=== PATIENT | female | born 1975 | race Caucasian/White ===

== ENCOUNTER 2016-09-04 01:49 | Emergency (ER) | payer OTHER ==
[~2016-09-04] VITALS: Ht 167.6 cm; Wt 63.5 kg
[~2016-09-04 01:49] MED LIST: CETI10CA PO; LEVO1TAB20 PO; SERT50TA PO
[2016-09-04] MEDS ORDERED: IV NS 0.9% 1,000 ML ONE (01:53)
[2016-09-04] MEDS ORDERED: IV SET PRIMARY 1 EA INFUS.SET MC ONE (01:53)
[2016-09-04] MEDS ORDERED: IV NS 0.9% 1,000 ML BAG IV ONE (02:00)
[2016-09-04 02:21] LABS: BASOPHILS % (AUTO) 0.7 % (0.0-2.0); DIFF TOTAL % 100 %; EOSINOPHILS % (AUTO) 0.6 % (0.0-6.0); HEMATOCRIT 33 % (33-45); HEMOGLOBIN 11.6 g/dL (11.5-14.8); LYMPHOCYTES # (AUTO) 1.5 /CMM (0.8-4.8); MEAN CORPUSCULAR HEMOGLOBIN 32 PG (26.0-33.0); MEAN CORPUSCULAR HGB CONC 35 g/dl (31.0-36.0); MEAN CORPUSCULAR VOLUME 92 fL (82-100); MONOCYTES # (AUTO) 0.3 /CMM (0.1-1.30); MONOCYTES % (AUTO) 8.3 % (2.0-12.0); NEUTROPHILS # (AUTO) 1.9 /CMM (1.8-8.9); NEUTROPHILS % (AUTO) 50.4 % (43.0-81.0); PLATELET COUNT (AUTO) 253 /CMM (150-450); RED BLOOD CELL COUNT(AUTO) 3.61 MIL/uL (4.0-5.2); WHITE BLOOD COUNT (AUTO) 3.7 K/uL (4.3-11.0)
[2016-09-04 02:38] LABS: ANION GAP 7 (5-14); CALCIUM, SERUM 7.6 mg/dL (8.5-10.1); CARBON DIOXIDE 30 mmol/L (21-32); CHLORIDE 104 mmol/L (98-107); GFR 61 mL/min (>60); GLUCOSE 82 mg/dL (74-106); POTASSIUM 3.4 mmol/L (3.5-5.1); SODIUM SERUM 138 mmol/L (136-145); UREA NITROGEN, BLOOD 13 mg/dL (7-18)
[2016-09-04 02:40] LABS: BILIRUBIN,DIRECT 0.1 mg/dL (0.0-0.2); BILIRUBIN,TOTAL 0.3 mg/dL (0.2-1.0)
[2016-09-04 02:41] LABS: ACETAMINOPHEN 8 ug/ml (10-30); ALANINE AMINOTRANSFERASE 19 U/L (12-78); ALBUMIN 3.1 g/dL (3.4-5.0); ASPARTATE AMINOTRANSFERASE 9 U/L (15-37); INDIRECT BILIRUBIN 0.2 mg/dL (0.0-1.1); SALICYLATE 0.3 mg/dL (2.8-20.0); TOTAL PROTEIN, SERUM 6.1 g/dL (6.4-8.2)
[2016-09-04 03:19] LABS: KETONES,URINE TRACE (NEGATIVE); LEUKOCYTE ESTERASE ,URINE NEGATIVE (NEGATIVE)
[2016-09-04 03:21] LABS: ADD UA MICROSCOPIC YES
[2016-09-04 03:23] LABS: PREGNANCY TEST URINE QUAL NEGATIVE (NEGATIVE)
[2016-09-04 03:25] LABS: ADD URINE CULTURE NO; WBC,URINE NONE SEEN /HPF (0-3)
[2016-09-04 03:26] LABS: CANNABINOID, URINE NEGATIVE (NEGATIVE); PHENCYCLIDINE SCREEN,URINE NEGATIVE (NEGATIVE)
[2016-09-04 12:15] VITALS: BP 118/68
== END 2016-09-04 12:15 | disposition home or self-care (01) ==
LOC: ER 01:51
DX: F19.10 Other psychoactive substance abuse, uncomplicated (principal); R40.4 Transient alteration of awareness; F32.9 Major depressive disorder, single episode, unspecified; G43.909 Migraine, unspecified, not intractable, without status migrainosus; R53.82 Chronic fatigue, unspecified; M79.7 Fibromyalgia
CPT/HCPCS: 36415; 70450; 80048; 80076; 80305; 80329; 81001; 82962; 84703; 85025; 96360; 99285; A4606; G0480 ×2; J7030; Z7610; 81000-TC; G6039-TC

== ENCOUNTER 2017-01-07 00:34 | Emergency (ER) | payer OTHER ==
[~2017-01-07] VITALS: Ht 165.1 cm; Wt 55.8 kg
--- NOTE | 2017-01-07 00:38 | NUR ---
PT BIB [facility] WITH A C/O POSSIBLE OVERDOSE APPROX 24-30 HRS AGO TOOK 30 NORCO WHILE SLEEP WALKING. PT IS AA&O X4. PT IS C/O RUQ ABD PAIN AND IS TENDER UPON PALPATION BY . DR. ROMO IS AT THE BEDSIDE. PT IS ON THE MONITOR AND CONTINUOUS PULSE OX. VSS.
--- NOTE | 2017-01-07 00:38 | NUR ---
PT TAKES A SLEEPING PILL AND HAS BEEN SLEEP WALKING. PT STATED THAT SHE IS NOT SUPPOSED TO EAT GLUTEN, BUT DID WHILE SLEEP WALKING.
[2017-01-07] MEDS ORDERED: ACETYLCYSTEINE IV 6,000 MG/30 ML VIAL IV ONE ×2 (00:45→00:49)
[2017-01-07] MEDS ORDERED: IV D5W 250 ML IV ONE (00:49)
[2017-01-07] MEDS ORDERED: IV SET PRIMARY PUMP SET 1 EA INFUS.SET MC ONE (00:49)
[2017-01-07 00:59] LABS: BASOPHILS % (AUTO) 0.2 % (0.0-2.0); EOSINOPHILS % (AUTO) 0.3 % (0.0-6.0); HEMATOCRIT 38 % (33-45); HEMOGLOBIN 12.9 g/dL (11.5-14.8); LYMPHOCYTES # (AUTO) 0.9 /CMM (0.8-4.8); LYMPHOCYTES % (AUTO) 14.5 % (20.0-44.0); MEAN CORPUSCULAR HEMOGLOBIN 32 PG (26.0-33.0); MEAN CORPUSCULAR HGB CONC 34 g/dl (31.0-36.0); MEAN CORPUSCULAR VOLUME 93 fL (82-100); MONOCYTES # (AUTO) 0.2 /CMM (0.1-1.30); MONOCYTES % (AUTO) 3.3 % (2.0-12.0); NEUTROPHILS # (AUTO) 5.2 /CMM (1.8-8.9); NEUTROPHILS % (AUTO) 81.7 % (43.0-81.0); PLATELET COUNT (AUTO) 261 /CMM (150-450); RDW COEFFICIENT OF VARIATION 13.5 (11.5-15.0); RED BLOOD CELL COUNT(AUTO) 4.03 MIL/uL (4.0-5.2); WHITE BLOOD COUNT (AUTO) 6.3 K/uL (4.3-11.0)
[2017-01-07] MEDS ORDERED: ONDANSETRON HCL/PF 4 MG/2 ML VIAL ONE ×2 (00:59→03:01)
[2017-01-07] MEDS ORDERED: IV NS 0.9% 1,000 ML ONE (00:59)
[2017-01-07] MEDS ORDERED: IV SET PRIMARY 1 EA INFUS.SET MC ONE (00:59)
[2017-01-07] MEDS ORDERED: D5W IV SCH (01:00)
[2017-01-07] MEDS ORDERED: ACETYLCYSTEINE IV SCH (01:00)
[2017-01-07] MEDS ORDERED: D5W IV ONE (01:00)
[2017-01-07] MEDS ORDERED: ONDANSETRON HCL/PF 4 MG/2 ML VIAL IV ONE (01:00)
[2017-01-07] MEDS ORDERED: ACETYLCYSTEINE IV ONE (01:00)
[2017-01-07] MEDS ORDERED: IV NS 0.9% 1,000 ML BAG IV ONE (01:00)
--- NOTE | 2017-01-07 01:08 | NUR ---
EKG IN PROGRESS AT THE BEDSIDE.
[2017-01-07 01:14] LABS: INR 0.98 (0.87-1.13); PROTHROMBIN TIME 10.5 SECS (9.5-12.7)
[2017-01-07] MEDS ORDERED: IV D5W 500 ML IV ONE (01:16)
[2017-01-07 01:31] LABS: ACETAMINOPHEN 1 ug/ml (10-30); ALANINE AMINOTRANSFERASE 27 U/L (12-78); ALBUMIN 3.8 g/dL (3.4-5.0); ALKALINE PHOSPHATASE 64 U/L (46-116); ASPARTATE AMINOTRANSFERASE 16 U/L (15-37); BILIRUBIN,DIRECT 0.1 mg/dL (0.0-0.2); BILIRUBIN,TOTAL 0.6 mg/dL (0.2-1.0); CALCIUM, SERUM 8.8 mg/dL (8.5-10.1); CARBON DIOXIDE 28 mmol/L (21-32); CHLORIDE 103 mmol/L (98-107); CREATININE 0.8 mg/dL (0.6-1.3); GLUCOSE 101 mg/dL (74-106); SODIUM SERUM 138 mmol/L (136-145); TOTAL PROTEIN, SERUM 7.2 g/dL (6.4-8.2); UREA NITROGEN, BLOOD 18 mg/dL (7-18)
[2017-01-07 01:32] LABS: ALCOHOL, BLOOD < 3 mg/dL (0-0); SALICYLATE 0.9 mg/dL (2.8-20.0)
--- NOTE | 2017-01-07 01:34 | NUR ---
PT APPEARS TO BE RESTING COMFORTABLY. VSS.
--- NOTE | 2017-01-07 02:19 | NUR ---
PT APPEARS TO BE RESTING COMFORTABLY, BUT ASKED TO USE THE BATHROOM. BED SIDE COMMODE AT THE BEDSIDE. PT IS TRYING TO GIVE A URINE SAMPLE.
--- NOTE | 2017-01-07 02:30 | NUR ---
PT RETURNED TO BED. URINE SAMPLE SENT TO LAB.
--- NOTE | 2017-01-07 03:02 | NUR ---
PT IS C/O ABD PAIN AND NAUSEA.
--- NOTE | 2017-01-07 03:10 | NUR ---
PT REC'D JOE ORDERED.
[2017-01-07 03:51] LABS: APPEARANCE,URINE SL CLOUDY (CLEAR); BILIRUBIN,URINE NEGATIVE (NEGATIVE); BLOOD, URINE NEGATIVE Ery/uL (NEGATIVE); COLOR,URINE YELLOW (YELLOW); KETONES,URINE 3+ (NEGATIVE); LEUKOCYTE ESTERASE ,URINE NEGATIVE (NEGATIVE); NITRITE, URINE NEGATIVE (NEGATIVE); PROTEIN,URINE NEGATIVE (NEGATIVE); UGLUCOSE NEGATIVE (NEGATIVE); UROBILINOGEN,URINE 0.2 EU/dL (0.2)
[2017-01-07 03:55] LABS: PREGNANCY TEST URINE QUAL NEGATIVE (NEGATIVE)
--- NOTE | 2017-01-07 03:55 | NUR ---
PT AMBULATED TO THE BATHROOM WITH A SLOW STEADY GAIT.
[2017-01-07 03:59] LABS: BACTERIA,URINE 2+ /HPF (None Seen); RBC,URINE NONE SEEN /HPF (0-2); SQUAMOUS EPITHELIAL CELL,UR Many /HPF (None Seen); WBC,URINE 0-2 /HPF (0-3)
[2017-01-07 04:00] LABS: MUCUS,URINE Many /LPF (None Seen)
--- NOTE | 2017-01-07 04:10 | NUR ---
PT RETURNED TO BED #1. PT WAS RECONNECTED TO THE MONITOR AND CONTINUOUS PULSE OX.
--- NOTE | 2017-01-07 04:31 | NUR ---
PT REC'D JELLO AND APPLE JUICE. PT IS TOLERATING PO WELL.
[2017-01-07 05:15] LABS: INR 1.06 (0.87-1.13); PROTHROMBIN TIME 11.4 SECS (9.5-12.7)
[2017-01-07 05:23] LABS: ALBUMIN 3.2 g/dL (3.4-5.0); BILIRUBIN,TOTAL 0.6 mg/dL (0.2-1.0); CREATININE 0.7 mg/dL (0.6-1.3); POTASSIUM 3.9 mmol/L (3.5-5.1); TOTAL PROTEIN, SERUM 6.4 g/dL (6.4-8.2)
--- NOTE | 2017-01-07 05:44 | NUR ---
DR. ROMO IS AT THE BEDSIDE.
--- NOTE | 2017-01-07 05:58 | NUR ---
IV removed. Catheter intact and site benign. Pressure and 4x4 applied to site. No bleeding noted.Patient discharged to home in stable condition. Written and verbal after care instructions given. Patient verbalizes understanding of instruction. PT CALLED AN UBER TO TAKE HER HOME. PT AMBULATED OUT WITH A STEADY GAIT. VSS.
[2017-01-07 06:04] VITALS: BP 110/75
== END 2017-01-07 05:58 | disposition home or self-care (01) ==
LOC: ER 00:36
DX: F19.10 Other psychoactive substance abuse, uncomplicated (principal); G43.909 Migraine, unspecified, not intractable, without status migrainosus; Z88.8 Allergy status to other drugs, medicaments and biological substances
CPT/HCPCS: 36415; 80048; 80053; 80076; 80305; 80329; 81001; 82962; 83605; 84703; 85025; 85610; 85730; 87081; 87086; 93005; 96365; 96366; 96375; 99285; A4606; G0480 ×3; J0132 ×2; J2405 ×2; J7030; J7060 ×2; Z7610; 81000-TC

== ENCOUNTER 2018-02-14 14:04 | Emergency (ER) | payer OTHER ==
[~2018-02-14] VITALS: Ht 172.7 cm; Wt 53.1 kg
--- NOTE | 2018-02-14 14:20 | NUR ---
BIB [facility] C/O FEELING WEAK AFTER TAKING SUBOXONE AND "OTHER MEDS". NOTED LETHARGIC. VSS. SEEN BY MD FOR EVAL. SAFETY AND COMFORT MEASURES PROVIDED. WILL MONITOR.
[2018-02-14] MEDS ORDERED: IV NS 0.9% 1,000 ML BAG IV ONE (14:30)
[2018-02-14 14:50] LABS: BASOPHILS # (AUTO) 0.1 /CMM (0.0-0.2); BASOPHILS % (AUTO) 1.1 % (0.0-2.0); EOSINOPHILS % (AUTO) 0.8 % (0.0-6.0); HEMATOCRIT 38 % (33-45); HEMOGLOBIN 12.9 g/dL (11.5-14.8); LYMPHOCYTES # (AUTO) 0.9 /CMM (0.8-4.8); LYMPHOCYTES % (AUTO) 20.3 % (20.0-44.0); MEAN CORPUSCULAR HEMOGLOBIN 33 PG (26.0-33.0); MEAN CORPUSCULAR HGB CONC 34 g/dl (31.0-36.0); MEAN CORPUSCULAR VOLUME 96 fL (82-100); MONOCYTES # (AUTO) 0.4 /CMM (0.1-1.30); MONOCYTES % (AUTO) 8.3 % (2.0-12.0); NEUTROPHILS # (AUTO) 3.2 /CMM (1.8-8.9); NEUTROPHILS % (AUTO) 69.5 % (43.0-81.0); PLATELET COUNT (AUTO) 287 /CMM (150-450); RDW COEFFICIENT OF VARIATION 13.4 (11.5-15.0); RED BLOOD CELL COUNT(AUTO) 3.95 MIL/uL (4.0-5.2); WHITE BLOOD COUNT (AUTO) 4.7 K/uL (4.3-11.0)
--- NOTE | 2018-02-14 14:50 | NUR ---
IV ACCESS STARTED. BLOOD DRAWN FOR LABS. MEDICATED ORDERED.
[2018-02-14 15:06] LABS: ALBUMIN 3.8 g/dL (3.4-5.0); BILIRUBIN,DIRECT 0.1 mg/dL (0.0-0.2); BILIRUBIN,TOTAL 0.5 mg/dL (0.2-1.0); CALCIUM, SERUM 8.4 mg/dL (8.5-10.1); CREATININE 0.9 mg/dL (0.6-1.3); POTASSIUM 3.7 mmol/L (3.5-5.1)
--- NOTE | 2018-02-14 16:15 | NUR ---
PT TRIED TO WALK TO THE BATHROOM NOTED WITH UNSTEADY GAIT, SAFELY ASSISTED BACK IN THE BED AND TO THE BED DAILY. MADE AWARE.
--- NOTE | 2018-02-14 17:00 | NUR ---
Patient is resting comfortably in bed with eyes closed. Easily aroused. VSS
--- NOTE | 2018-02-14 19:20 | NUR ---
REPORT GIVEN TO KATHY CALDERÓN FOR CORNEL.
[2018-02-14 19:35] VITALS: BP 122/74
== END 2018-02-14 19:36 | disposition home or self-care (01) ==
LOC: ER 14:08
DX: R40.0 Somnolence (principal); R53.82 Chronic fatigue, unspecified; G43.909 Migraine, unspecified, not intractable, without status migrainosus; F32.9 Major depressive disorder, single episode, unspecified; M79.7 Fibromyalgia; R47.81 Slurred speech; Z91.018 Allergy to other foods
CPT/HCPCS: 36415; 71045-TC; 80048-TC; 80076-TC; 84703-TC; 85025-TC; A4606; J7030; Z7610

== ENCOUNTER 2019-03-31 01:03 | Emergency (ER) | payer OTHER ==
[~2019-03-31] VITALS: Ht 172.7 cm; Wt 49.9 kg
[2019-03-31] MEDS ORDERED: ONDANSETRON HCL/PF 4 MG/2 ML VIAL ONE (01:28)
[2019-03-31] MEDS ORDERED: ONDANSETRON HCL/PF 4 MG/2 ML VIAL IV ONE (01:30)
[2019-03-31] MEDS ORDERED: IV NS 0.9% 1,000 ML BAG IV ONE (01:30)
--- NOTE | 2019-03-31 01:32 | NUR ---
BIB EMS C/O INSOMNIA, PALPITATION, GENERALIZED BODY PAIN & ANXIETY X2 DAYS PT REPORTS THAT SHE RAN OUT OF HER KLONOPIN MEDICATION
[2019-03-31 01:40] LABS: BASOPHILS % (AUTO) 0.5 % (0.0-2.0); EOSINOPHILS % (AUTO) 0.7 % (0.0-6.0); HEMATOCRIT 38 % (33-45); HEMOGLOBIN 13.4 g/dL (11.5-14.8); LYMPHOCYTES # (AUTO) 1.1 /CMM (0.8-4.8); LYMPHOCYTES % (AUTO) 16.2 % (20.0-44.0); MEAN CORPUSCULAR HGB CONC 35 g/dl (31.0-36.0); MEAN CORPUSCULAR VOLUME 94 fL (82-100); MONOCYTES # (AUTO) 0.4 /CMM (0.1-1.30); MONOCYTES % (AUTO) 6.6 % (2.0-12.0); PLATELET COUNT (AUTO) 289 /CMM (150-450); RED BLOOD CELL COUNT(AUTO) 4.11 MIL/uL (4.0-5.2); WHITE BLOOD COUNT (AUTO) 6.5 K/uL (4.3-11.0)
[2019-03-31 01:50] LABS: CALCIUM, SERUM 8.8 mg/dL (8.5-10.1); CARBON DIOXIDE 28 mmol/L (21-32); CHLORIDE 103 mmol/L (98-107); CREATININE 0.7 mg/dL (0.6-1.3); GLUCOSE 88 mg/dL (74-106); SODIUM SERUM 138 mmol/L (136-145); UREA NITROGEN, BLOOD 8 mg/dL (7-18)
[2019-03-31 01:58] LABS: ALANINE AMINOTRANSFERASE 22 U/L (12-78); ALBUMIN 3.7 g/dL (3.4-5.0); ALCOHOL, BLOOD < 3 mg/dL (0-0); ALKALINE PHOSPHATASE 66 U/L (46-116); ASPARTATE AMINOTRANSFERASE 13 U/L (15-37); BILIRUBIN,DIRECT 0.1 mg/dL (0.0-0.2); BILIRUBIN,TOTAL 0.3 mg/dL (0.2-1.0); TOTAL PROTEIN, SERUM 7.1 g/dL (6.4-8.2)
[2019-03-31 01:59] LABS: ACETAMINOPHEN 0 ug/ml (10-30); SALICYLATE 0.9 mg/dL (2.8-20.0)
--- NOTE | 2019-03-31 02:55 | NUR ---
ASSISTED AMBULATING TO THE BATHROOM. URINE SAMPLE COLLECTED AND CALLED LAB FOR DELICATESSEN DEPARTMENT MANAGER.
[2019-03-31 03:10] LABS: APPEARANCE,URINE CLEAR (CLEAR); BILIRUBIN,URINE NEGATIVE (NEGATIVE); BLOOD, URINE 1+ Ery/uL (NEGATIVE); COLOR,URINE YELLOW (YELLOW); KETONES,URINE NEGATIVE (NEGATIVE); LEUKOCYTE ESTERASE ,URINE NEGATIVE (NEGATIVE); NITRITE, URINE NEGATIVE (NEGATIVE); PROTEIN,URINE NEGATIVE (NEGATIVE); UGLUCOSE NEGATIVE (NEGATIVE); UROBILINOGEN,URINE 0.2 EU/dL (0.2)
[2019-03-31] MEDS ORDERED: clonazePAM 1 MG TABLET ONE (03:22)
[2019-03-31 03:29] LABS: BACTERIA,URINE None seen /HPF (None Seen); SQUAMOUS EPITHELIAL CELL,UR Few /HPF (None Seen); WBC,URINE 0-2 /HPF (0-3)
[2019-03-31] MEDS ORDERED: clonazePAM 1 MG TABLET PO ONE (03:30)
--- NOTE | 2019-03-31 04:42 | NUR ---
IV removed. Catheter intact and site benign. Pressure and 4x4 applied to site. No bleeding noted.Patient discharged to home in stable condition. Written and verbal after care instructions given. Patient verbalizes understanding of instruction. PT WILL GET UBER HOME
[2019-03-31 19:34] VITALS: BP 121/83
== END 2019-03-31 04:42 | disposition home or self-care (01) ==
LOC: ER 01:04
DX: F19.10 Other psychoactive substance abuse, uncomplicated (principal); F41.9 Anxiety disorder, unspecified; G43.909 Migraine, unspecified, not intractable, without status migrainosus; F32.9 Major depressive disorder, single episode, unspecified; M79.7 Fibromyalgia; Z91.048 Other nonmedicinal substance allergy status; Z79.899 Other long term (current) drug therapy
CPT/HCPCS: 36415; 80048; 80076; 80305; 80307; 80329; 81001; 85025; 93005; 96374; 99284; G0480; J2405; J7030; 81000-TC

== ENCOUNTER 2020-06-01 01:14 | Emergency (ER) | payer OTHER ==
[~2020-06-01] VITALS: Ht 172.7 cm; Wt 58.1 kg
--- NOTE | 2020-06-01 01:29 | NUR ---
PT BIBRA FROM HOME FOR "SNORTING TOO MUCH HEROIN THAN USUAL" PER PT. PT DENIES SI/HI. PT AAOX4, RESPIRATIONS EVEN AND UNLABORED ON RA W/ NAD NOTED. PT CONNECTED TO THE ENGINE TESTER AND POX
--- NOTE | 2020-06-01 01:34 | NUR ---
DR LOMAX AT BEDSIDE FOR EVAL
[2020-06-01] MEDS ORDERED: ONDANSETRON HCL/PF 4 MG/2 ML VIAL ONE ×2 (01:49→03:53)
[2020-06-01] MEDS: IV NS 0.9% 1,000 ML BAG IV ONE (01:54)
[2020-06-01] MEDS: ONDANSETRON HCL/PF 4 MG/2 ML VIAL IVP ONE (01:54)
[2020-06-01 01:58] LABS: BASOPHILS % (AUTO) 0.1 % (0.0-2.0); HEMATOCRIT 35 % (33-45); HEMOGLOBIN 12.2 g/dL (11.5-14.8); LYMPHOCYTES # (AUTO) 0.9 /CMM (0.8-4.8); LYMPHOCYTES % (AUTO) 5.9 % (20.0-44.0); MEAN CORPUSCULAR HGB CONC 35 g/dl (31.0-36.0); MEAN CORPUSCULAR VOLUME 92 fL (82-100); MONOCYTES # (AUTO) 1.5 /CMM (0.1-1.30); MONOCYTES % (AUTO) 9.7 % (2.0-12.0); NEUTROPHILS # (AUTO) 12.9 /CMM (1.8-8.9); NEUTROPHILS % (AUTO) 84.3 % (43.0-81.0); PLATELET COUNT (AUTO) 212 /CMM (150-450); WHITE BLOOD COUNT (AUTO) 15.3 K/uL (4.3-11.0)
[2020-06-01 02:04] LABS: CALCIUM, SERUM 8.8 mg/dL (8.5-10.1); CARBON DIOXIDE 25 mmol/L (21-32); CHLORIDE 100 mmol/L (98-107); CREATININE 0.9 mg/dL (0.6-1.3); GLUCOSE 97 mg/dL (74-106); POTASSIUM 3.2 mmol/L (3.5-5.1); SODIUM SERUM 133 mmol/L (136-145); UREA NITROGEN, BLOOD 10 mg/dL (7-18)
[2020-06-01 02:08] LABS: ACETAMINOPHEN < 10 ug/ml (10-30); ALANINE AMINOTRANSFERASE 40 U/L (12-78); ALBUMIN 3.2 g/dL (3.4-5.0); ALCOHOL, BLOOD < 3 mg/dL (0-0); ALKALINE PHOSPHATASE 52 U/L (46-116); ASPARTATE AMINOTRANSFERASE 38 U/L (15-37); BILIRUBIN,DIRECT 0.3 mg/dL (0.0-0.2); TOTAL PROTEIN, SERUM 6.9 g/dL (6.4-8.2)
[2020-06-01 02:54] LABS: BILIRUBIN,URINE Negative (NEGATIVE); BLOOD, URINE Moderate Ery/uL (NEGATIVE); COLOR,URINE YELLOW (YELLOW); LEUKOCYTE ESTERASE ,URINE Negative (NEGATIVE); NITRITE, URINE Negative (NEGATIVE); PH,URINE 7.5 (5.0-8.0); PROTEIN,URINE Trace mg/dl (NEGATIVE); UGLUCOSE Negative (NEGATIVE); UROBILINOGEN,URINE 0.2 EU/dL (0.2)
[2020-06-01 03:07] LABS: BACTERIA,URINE 2+ /HPF (None Seen); MUCUS,URINE Few /LPF (None Seen); SQUAMOUS EPITHELIAL CELL,UR Moderate /HPF (None Seen)
--- NOTE | 2020-06-01 03:51 | NUR ---
PT C/O NAUSEA. PER VERBAL MD ORDER, WILL ADMINISTER ZOFRAN 4MG IV X1 NOW
[2020-06-01] MEDS: ONDANSETRON HCL/PF 4 MG/2 ML VIAL IV ONE (03:57)
--- NOTE | 2020-06-01 04:20 | NUR ---
IV removed. Catheter intact and site benign. Pressure and 4x4 applied to site. No bleeding noted. Patient discharged to home in stable condition. Written and verbal after care instructions given. Patient verbalizes understanding of instruction. Pt ambulated out of E.D. vss.
[2020-06-01 05:38] VITALS: BP 111/72
== END 2020-06-01 05:38 | disposition home or self-care (01) ==
LOC: ER 01:27
DX: F19.10 Other psychoactive substance abuse, uncomplicated (principal); R11.0 Nausea; G43.909 Migraine, unspecified, not intractable, without status migrainosus; F32.9 Major depressive disorder, single episode, unspecified; F41.9 Anxiety disorder, unspecified; M79.7 Fibromyalgia; Z91.048 Other nonmedicinal substance allergy status; Z79.899 Other long term (current) drug therapy
CPT/HCPCS: 36415; 80048; 80076; 80299; 80307; 80320; 81001; 84703; 85025; 87086; 93005; 96361; 96374; 96376; 99284; J2405 ×2; J7030; 81000-TC; G0480